=== PATIENT | female | born 1975 | race Caucasian/White ===

== ENCOUNTER 2017-12-30 17:01 | Emergency (ER) | payer BC ==
[2017-12-30] MEDS ORDERED: LEVI SUBQ (17:11)
[2017-12-30] MEDS ORDERED: NS(*) 0.9% 1000 ML BAG 1,000 ML IV ONE (17:16)
[2017-12-30] MEDS ORDERED: MORPHINE 2 MG/ML SYR IVP ONE (17:20)
[2017-12-30 17:24] LABS: PLATELET COUNT, AUTOMATED 234 K/uL (150-450)
[2017-12-30] MEDS ORDERED: NS 0.9% 150 ML BAG 150 ML ONE (17:28)
[2017-12-30] MEDS ORDERED: IOPAMIDOL 76% 100 ML INFUS BTL 100 ML ONE (17:28)
[2017-12-30 17:34] LABS: INR 0.91
[2017-12-30] MEDS ORDERED: KETOROLAC 30 MG/ML VIAL IVP ONE (17:40)
[2017-12-30 18:10] VITALS: BP 124/87
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
--- NOTE | 2017-12-30 18:41 | RADIOLOGY IMAGING REPORT ---
[place] [facility] [place] Carrie Bowden : 1975 MR: [id number] V: [id number] EXAM DATE: ORDERING PHYSICIAN: FRANCISCO GRAHAM TECHNOLOGIST: [place] [facility] [place] Patient: Carrie Bowden : 1975 Visit/Account:[id number] Date of Sevice: 12/30/2017 HEAD W/O CONTRAST EXAMINATION: CT head/brain without contrast HISTORY: Trauma TECHNIQUE: Contiguous axial images were obtained from the skull base to the vertex without intravenou s contrast. One of the following dose optimization techniques was utilized in the performance of this exam: Autom ated exposure control; adjustment of the mA and/or kV according to the patient's size; or use of an i terative reconstruction technique. Specific details can be referenced in the facility's radiology C T exam operational policy. COMPARISON STUDIES: None FINDINGS: Ventricles/sulci/fissures: Midline in position and normal in configuration Masses/hemorrhage/midline shift: Negative White matter: No white matter edema or contusion change Licona-white differentiation: No cerebral edema or contusion Extra-axial spaces: Negative Dural venous sinuses/arterial structures: Negative Skull base/calvarium: Negative Visualized mastoid air cells/paranasal sinuses: Negative IMPRESSION: 1. Negative CT scan of the head for acute intracranial pathology Report Dictated By: Hernandez Kerr MD at 12/30/2017 6:36 PM Report E-Signed By: Hernandez Kerr MD at 12/30/2017 6:38 PM WSN:[id number]
--- NOTE | 2017-12-30 18:46 | RADIOLOGY IMAGING REPORT ---
[place] [facility] [place] NAME: Carrie Bowden : 1975 MR: [id number] V: [id number] EXAM DATE: ORDERING PHYSICIAN: FRANCISCO GRAHAM TECHNOLOGIST: Location: [facility] - [place] Patient: Carrie Bowden : 1975 Visit/Account:[id number] Date of Sevice: 12/30/2017 C-SPINE W/O CONTRAST EXAMINATION: CT cervical without contrast Additional pertinent history: None COMPARISON STUDIES: None TECHNIQUE: Axial images were obtained from the skull base through the upper thoracic spine . Coronal and sagittal reformatted images were obtained from the axial source data. One of the following dose optimization techniques was utilized in the performance of this exam: Autom ated exposure control; adjustment of the mA and/or kV according to the patient's size; or use of an i terative reconstruction technique. Specific details can be referenced in the facility's radiology C T exam operational policy. FINDINGS: Prevertebral soft tissues: Negative Alignment: Loss of the normal cervical lordosis. Kyphotic curvature centered at the C5-6 interspace. There is a prominent posterior osteophyte extending into the left lateral recess at this level. (Axia l image 91 series 4) Vertebral bodies: No compression deformity or fracture. Posterior elements: Facet joints well-maintained with no facet fracture or disruption. Disc spaces: Negative Visualized soft tissues anterior neck: Negative Visualized lung/mediastinum: Negative IMPRESSION: 1. Negative CT scan of the cervical spine for acute trauma. Report Dictated By: Hernandez Kerr MD at 12/30/2017 6:38 PM Report E-Signed By: Hernandez Kerr MD at 12/30/2017 6:43 PM WSN:[id number]
--- NOTE | 2017-12-30 18:55 | RADIOLOGY IMAGING REPORT ---
[place] [facility] [place]: Carrie Bowden : 1975 MR: [id number] V: [id number] EXAM DATE: ORDERING PHYSICIAN: FRANCISCO GRAHAM TECHNOLOGIST: Location: [facility] - [place] Patient: Carrie Bowden : 1975 Visit/Account:[id number] Date of Sevice: 12/30/2017 CHEST/AB/PELV W/CONTRAST Additional Pertinent history: Trauma TECHNIQUE: Spiral scan was obtained through the chest during injection of nonionic iodinated intrav enous contrast. Contrast: 100 mL of IV Isovue-370. COMPARISON STUDIES: 08/04/2016 One of the following dose optimization techniques was utilized in the performance of this exam: Autom ated exposure control; adjustment of the mA and/or kV according to the patient's size; or use of an i terative reconstruction technique. Specific details can be referenced in the facility's radiology C T exam operational policy.. FINDINGS: Lungs / pleura: No pneumothorax. No lung contusion. No effusion. Mediastinum / rachel: No mediastinal blood Heart / pericardium: negative Vessels: negative Musculoskeletal / Body wall: No acute fractures noted. Shoulders ribs and vertebral bodies well-maint ained. Visualized thoracic spines normal. Sternum is well-maintained. Lymph node assessment: negative Lower neck: negative Liver / biliary: No liver laceration. No perihepatic fluid. Gallbladder is unremarkable Pancreas: Pancreas is normal no pancreatic edema Spleen: No splenic laceration or perisplenic fluid Adrenal glands: negative Kidneys / retroperitoneum: Normal kidneys. Pelvic structures: Uterus and adnexal regions are unremarkable. Bladder is normal Bowel / peritoneum / mesenteries: No bowel inflammation. No interloop fluid. Small metallic density s een in the peritoneal fat of the left pelvis (axial image 157 series 9) Vessels: negative Musculoskeletal / Body wall: negative . Lymph node assessment: negative Lower chest: negative IMPRESSION: 1. Negative CT scan of the abdomen/pelvis for acute pathology. Report Dictated By: Hernandez Kerr MD at 12/30/2017 6:44 PM Report E-Signed By: Hernandez Kerr MD at 12/30/2017 6:51 PM WSN:[id number]
--- NOTE | 2017-12-30 18:55 | RADIOLOGY IMAGING REPORT ---
FACILITY: [facility] PATIENT NAME: Carrie Bowden : 1975 MR: [id number] V: [id number] EXAM DATE: ORDERING PHYSICIAN: FRANCISCO GRAHAM TECHNOLOGIST: Location: [facility] - [place] Patient: Carrie Bowden : 1975 Visit/Account:[id number] Date of Sevice: 12/30/2017 CHEST SINGLE AP Additional pertinent History: Trauma COMPARISON STUDIES: none FINDINGS: Support lines and catheters: None Lungs and Pleura: Lung duggan well expanded with no infiltrates or consolidations. No parenchymal ma ss lesions are seen. There are no effusions Heart and vasculature: Negative. [place] and Mediastinum: Negative. Bones and Chest wall: Negative. Upper Abdomen: Negative. IMPRESSION: 1. Normal chest Report Dictated By: Hernandez Kerr MD at 12/30/2017 6:51 PM Report E-Signed By: Hernandez Kerr MD at 12/30/2017 6:52 PM WSN:[id number]
--- NOTE | 2017-12-30 18:58 | RADIOLOGY IMAGING REPORT ---
FACILITY: [facility] - [place] PATIENT NAME: Carrie Bowden : 1975 MR: [id number] V: [id number] EXAM DATE: ORDERING PHYSICIAN: FRANCISCO GRAHAM TECHNOLOGIST: Location: [facility] Patient: Carrie Bowden : 1975 Visit/Account:[id number] Date of Sevice: 12/30/2017 HAND COMPLETE RIGHT HISTORY: finger pain and swelling Three-view examination of the right hand FINDINGS: There is an oblique fracture nondisplaced through the middle phalanx of the right index finger. The f racture appears to extend up to the volar aspect of the joint space. Remainder the hands unremarkable. IMPRESSION: 1. Fractured middle phalanx right index finger as described. Report Dictated By: Hernandez Kerr MD at 12/30/2017 6:53 PM Report E-Signed By: Hernandez Kerr MD at 12/30/2017 6:54 PM WSN:[id number]
[2017-12-30] MEDS ORDERED: KET10 PO (19:04)
== END 2017-12-30 19:12 | disposition home or self-care (01) ==
LOC: ER 17:08
DX: S62.620A Displaced fracture of middle phalanx of right index finger, initial encounter for closed fracture (principal); S20.212A Contusion of left front wall of thorax, initial encounter; V49.40XA Driver injured in collision with unspecified motor vehicles in traffic accident, initial encounter
CPT/HCPCS: 70450; 71045; 71260; 72125; 73130; 74177; 80320; 81001; 82150; 83690; 85025; 85610; 85730; 96361; 96374; 99284; J1885; J7030; Q9967; 82040; 82247; 82310; 82374; 82435; 82565; 82947; 84075; 84132; 84155; 84295; 84450; 84460; 84520

== ENCOUNTER → 2017-12-30 | Outpatient (CLI) | payer OTHER, BC ==
[~2017-12-30] MED LIST: KET10 PO; LEVI SUBQ
== END ==
LOC: AMB 16:27
PROVIDERS: ATTEND Nurse Practitioner
DX: R41.82 Altered mental status, unspecified (principal); R07.81 Pleurodynia; V49.40XA Driver injured in collision with unspecified motor vehicles in traffic accident, initial encounter; W22.11XA Striking against or struck by driver side automobile airbag, initial encounter; Y92.415 Exit ramp or entrance ramp of street or highway as the place of occurrence of the external cause
CPT/HCPCS: A0425; A0427